=== PATIENT | female | born 1940 | race Caucasian/White ===

== ENCOUNTER 2020-02-11 11:21 | Outpatient (CLI) | payer MEDICARE, OTHER ==
--- NOTE | 2020-02-11 10:40 | MMO ---
Bilateral MAMMO Bilat Screen [facility]. CLINICAL HISTORY: Patient is 79 years old and is seen for screening. The patient has the following family history of breast cancer: sister, at age 65, bilateral, bone ca. The patient has no personal history of cancer. VIEWS: The views performed were: bilateral craniocaudal with tomosynthesis and bilateral mediolateral oblique with tomosynthesis. FILMS COMPARED: The present examination has been compared to prior imaging studies performed at [facility] on 03/15/2011, 03/16/2012, 01/24/2014 and 01/30/2015. This study has been interpreted with the assistance of computer-aided detection. MAMMOGRAM FINDINGS: The breasts are heterogeneously dense, which could obscure a lesion on mammography. There are stable benign appearing calcifications seen in both breasts. Nodularity is stable. There are no suspicious masses, suspicious calcifications, or new areas of architectural distortion. IMPRESSION: THERE IS NO MAMMOGRAPHIC EVIDENCE OF MALIGNANCY. A ROUTINE FOLLOW-UP MAMMOGRAM IN 1 YEAR IS RECOMMENDED. THE RESULTS OF THIS EXAM WERE SENT TO THE PATIENT. ACR BI-RADS Category 2 - Benign finding MAMMOGRAPHY NOTE: 1. A negative mammogram report should not delay a biopsy if a dominant of clinically suspicious mass is present. 2. Approximately 10% to 15% of breast cancers are not detected by mammography. 3. Adenosis and dense breasts may obscure an underlying neoplasm. Reported by: HEMANTH CARDOZA MD Electonically Signed: [id number]
--- NOTE | 2020-02-11 10:50 | BD ---
EXAM: DEXA bone density examination HISTORY: 79-year-old postmenopausal female for screening COMPARISON: None FINDINGS: L1--bone mineral density 0.956 g/sq cm; T score -0.3 L2--bone mineral density 0.999 g/sq cm; T score -0.3 L3--bone mineral density 1.286 g/sq cm; T score 1.8 L4--bone mineral density 1.079 g/sq cm; T score 0.2 Total L1-L4--bone mineral density 1.077 g/sq cm; T score 0.3 Left femoral neck--bone mineral density0.602; T score -2.2 Total proximal left femur--bone mineral density 0.686; T score -2.1 IMPRESSION: Osteopenia. This patient has a 10 year WHO fracture risk of a major osteoporotic fracture of 28% and of a hip fracture of 8.4%.
== END 2020-02-11 11:22 | disposition home or self-care (01) ==
LOC: BICMAMMO 11:21
PROVIDERS: ATTEND Internal Medicine
DX: Z12.31 Encounter for screening mammogram for malignant neoplasm of breast (principal); Z13.820 Encounter for screening for osteoporosis; Z78.0 Asymptomatic menopausal state; M85.852 Other specified disorders of bone density and structure, left thigh; Z80.3 Family history of malignant neoplasm of breast; Z80.8 Family history of malignant neoplasm of other organs or systems
CPT/HCPCS: 77063; 77067; 77080

== ENCOUNTER 2021-03-03 12:46 | Outpatient (CLI) | payer MEDICARE, OTHER | END 2021-03-03 12:47 | disposition home or self-care (01) | LOC: BICMAMMO 12:46 | PROVIDERS: ATTEND Internal Medicine | DX: Z12.31 Encounter for screening mammogram for malignant neoplasm of breast (principal); Z80.3 Family history of malignant neoplasm of breast | CPT/HCPCS: 77063; 77067 ==

== ENCOUNTER 2021-12-30 10:07 | Outpatient (CLI) | payer MEDICARE, OTHER | END 2021-12-30 10:08 | disposition home or self-care (01) | LOC: BICRAD 10:07 | PROVIDERS: ATTEND Internal Medicine | DX: M54.9 Dorsalgia, unspecified (principal); M54.2 Cervicalgia; M41.84 Other forms of scoliosis, thoracic region | CPT/HCPCS: 72040; 72072 ==

== ENCOUNTER 2022-02-12 12:38 | Outpatient (CLI) | payer MEDICARE, OTHER ==
[~2022-02-12 12:38] MED LIST: Iopamidol 370 76% 100 ML VIAL ONE
== END 2022-02-12 12:39 | disposition home or self-care (01) ==
LOC: BICCT 12:38
PROVIDERS: ATTEND Internal Medicine
DX: R07.9 Chest pain, unspecified (principal); K44.9 Diaphragmatic hernia without obstruction or gangrene
CPT/HCPCS: 71260; Q9967

== ENCOUNTER 2022-02-19 13:43 | Outpatient (CLI) | payer MEDICARE, OTHER | END 2022-02-19 13:44 | disposition home or self-care (01) | LOC: BICCT 13:43 | PROVIDERS: ATTEND Internal Medicine | DX: M54.9 Dorsalgia, unspecified (principal); M47.814 Spondylosis without myelopathy or radiculopathy, thoracic region | CPT/HCPCS: 72128 ==

== ENCOUNTER 2022-05-13 10:46 | Inpatient (IN) | payer MEDICARE, OTHER ==
[2022-05-13 11:56] LABS: #Basophils 0.1 thou/uL (0.0-0.2); #Eosinphils 0.1 thou/uL (0.0-0.7); #Lymphocytes 1.5 thou/uL (1.20-3.40); #Monocytes 0.3 thou/uL (0.11-0.59); #Neutrophils 4.9 thou/uL (1.40-6.50); %Basophils 0.9 % (0.0-1.0); %Eosinophils 1.4 % (0.0-10.0); %Monocytes 4.2 % (0.0-10.0); %Neutrophils 71.5 % (42.0-75.0); Hemoglobin 14.9 g/dL (12.0-16.0); Mean Corpuscular HGB CONC 32.8 g/dL (32.0-36.0); Mean Corpuscular Hemoglobin 29.6 pg (27.0-31.0); Mean Corpuscular Volume 90.2 fL (78.0-98.0); Mean Platelet Volume 7.6 fL (7.4-10.4); Platelet Count 275 thou/uL (130-400); RBC Distribution Width 11.9 % (11.5-14.5); Red Blood Cell (RBC) Count 5.03 mill/uL (4.20-5.40); White Blood Cell (WBC) Count 6.8 thou/uL (4.8-10.8)
[2022-05-13 12:17] LABS: Actual Bicarbonate (HCO3v) 17 mEq/L (22-28); Calcium, Ionized (venous) 1.17 mmol/L (1.16-1.32); Chloride (VBG) 97 mmol/L (98-106); Hemoglobin (Hb) 15.4 g/dL (11.7-16.1); Potassium (VBG) 5.21 mmol/L (3.70-5.30)
[2022-05-13 12:24] LABS: ALT (SGPT) 13 U/L (8-55); AST (SGOT) 15 U/L (5-34); Albumin 4.3 g/dL (3.4-4.8); Alkaline Phosphatase 136 U/L (40-110); Anion Gap 24 mmol/L (10-20); BUN (Urea Nitrogen) 24 mg/dL (9.8-20.1); Bilirubin, Total 1.3 mg/dL (0.2-1.2); Calc. Creatinine Clearance 0 mL/min (70-130); Calcium 9.5 mg/dL (7.8-10.44); Carbon Dioxide 14 mmol/L (23-31); Estimated GFR 42; Globulin 3.5 g/dL (2.4-3.5); Glucose 474 mg/dL (83-110); Potassium 4.9 mmol/L (3.5-5.1); Protein, Total 7.8 g/dL (5.8-8.1)
[2022-05-13 12:29] LABS: Chloride 98 mmol/L (98-107); Sodium 131 mmol/L (136-145)
[2022-05-13] MEDS ORDERED: Insulin Regular 300 UNITS/3 ML VIAL ONE (13:41)
[2022-05-13] MEDS ORDERED: Ketorolac Tromethamine 30 MG/ML VIAL ONE (14:24)
[2022-05-13] MEDS ORDERED: Ondansetron PF 4 MG/2 ML Vial IVP PRN (14:26)
[2022-05-13] MEDS ORDERED: Acetaminophen 325 MG TAB PO PRN (14:26)
[2022-05-13] MEDS ORDERED: Ondansetron ODT 4 MG TAB PO PRN (14:26)
[2022-05-13] MEDS ORDERED: Dextrose 50% Abboject 50 ML SYRINGE SLOW IVP PRN (14:29)
[2022-05-13] MEDS ORDERED: Dextrose 5% in Water 1,000 ML IV PRN (14:29)
[2022-05-13] MEDS ORDERED: Insulin Regular 300 UNITS/3 ML VIAL SC PRN ×3 (14:29→15:59)
[2022-05-13] MEDS ORDERED: Sodium Chloride 0.9% 1,000 ML IV SCH ×3 (14:30→19:00)
[2022-05-13] MEDS ORDERED: Electrolyte Replacement Protocol 1 EACH FS SCH (14:30)
[2022-05-13 15:03] LABS: Bilirubin Negative (Negative); Blood, Urine Negative (Negative); Clarity Clear (Clear); Glucose, Urine (Dipstick) Greater than 1000 mg/dL (Negative); Ketone, Urine Greater than 150 mg/dL (Negative); Leukocyte Negative Leu/uL (Negative); Nitrite Negative (Negative); Protein, Urine (Dipstick) Negative (Neg-Trace); Specific Gravity, Urine 1.019 (1.002-1.036); Urobilinogen Normal mg/dL (Less than 2); pH, Urine 5.5 (5.0-9.0)
[2022-05-13 15:10] LABS: INR-International Normal Ratio 1.2; Prothrombin Time 15.7 sec (12.0-14.7)
[2022-05-13 15:16] LABS: Magnesium 1.9 mg/dL (1.6-2.6); Phosphorus 3.6 mg/dL (2.3-4.7)
[2022-05-13] MEDS ORDERED: Insulin Glargine 30 UNITS/0.3 ML VIAL SC SCH ×3 (15:45→21:00)
[2022-05-13 16:10] VITALS: BP 156/71
[2022-05-13 16:14] VITALS: BMI 27.2
[2022-05-13 18:41] LABS: Anion Gap 23 mmol/L (10-20); BUN (Urea Nitrogen) 22 mg/dL (9.8-20.1); Calc. Creatinine Clearance 41 mL/min (70-130); Calcium 8.8 mg/dL (7.8-10.44); Carbon Dioxide 10 mmol/L (23-31); Chloride 103 mmol/L (98-107); Estimated GFR 45; Glucose 453 mg/dL (83-110); Potassium 5.1 mmol/L (3.5-5.1); Sodium 131 mmol/L (136-145)
[2022-05-13] MEDS ORDERED: Dextrose 5 %-0.45 % NaCl 1,000 ML IV PRN (18:51)
[2022-05-13] MEDS ORDERED: Sodium Chloride 0.9% 1,000 ML IV PRN ×4 (18:51)
[2022-05-13] MEDS ORDERED: NS 0.9% w/ 20 MEQ KCL 1,000 ML IV PRN ×2 (18:51)
[2022-05-13] MEDS ORDERED: D5 1/2 NS w/20 mEq KCL 1,000 ML IV PRN (18:51)
[2022-05-13] MEDS ORDERED: HUMULIN R 100 UNITS in Sodium Chloride 0.9% 100 ML IVPB SCH (19:00)
[2022-05-13] MEDS: Heparin 5,000 UNITS/ML VIAL SC SCH (20:32)
[2022-05-13] MEDS ORDERED: Famotidine 20 MG TAB PO SCH (21:00)
[2022-05-13] MEDS ORDERED: Magnesium 2 GM/50 ML(in water) 2 GM in Premix Bag 1 BAG IVPB SCH (23:59)
[2022-05-14 00:39] LABS: Anion Gap 10 mmol/L (10-20); BUN (Urea Nitrogen) 18 mg/dL (9.8-20.1); Calc. Creatinine Clearance 58 mL/min (70-130); Calcium 7.9 mg/dL (7.8-10.44); Carbon Dioxide 19 mmol/L (23-31); Chloride 110 mmol/L (98-107); Estimated GFR 69; Glucose 222 mg/dL (83-110); Potassium 3.6 mmol/L (3.5-5.1); Sodium 135 mmol/L (136-145)
[2022-05-14] MEDS ORDERED: HumaLOG 300 UNITS/3 ML VIAL SC PRN (01:19)
[2022-05-14 03:33] LABS: #Eosinphils 0.1 thou/uL (0.0-0.7); #Lymphocytes 1.8 thou/uL (1.20-3.40); #Monocytes 0.7 thou/uL (0.11-0.59); #Neutrophils 4.2 thou/uL (1.40-6.50); %Basophils 0.6 % (0.0-1.0); %Eosinophils 1.5 % (0.0-10.0); %Lymphocytes 26.5 % (21.0-51.0); %Monocytes 10.3 % (0.0-10.0); %Neutrophils 61.1 % (42.0-75.0); Hemoglobin 12.5 g/dL (12.0-16.0); Mean Corpuscular HGB CONC 33.2 g/dL (32.0-36.0); Mean Corpuscular Hemoglobin 29.8 pg (27.0-31.0); Mean Corpuscular Volume 89.8 fL (78.0-98.0); Mean Platelet Volume 7.4 fL (7.4-10.4); Platelet Count 219 thou/uL (130-400); RBC Distribution Width 12.1 % (11.5-14.5); Red Blood Cell (RBC) Count 4.21 mill/uL (4.20-5.40); White Blood Cell (WBC) Count 6.9 thou/uL (4.8-10.8)
[2022-05-14 03:55] LABS: Anion Gap 12 mmol/L (10-20); BUN (Urea Nitrogen) 17 mg/dL (9.8-20.1); Calc. Creatinine Clearance 61 mL/min (70-130); Calcium 8.6 mg/dL (7.8-10.44); Carbon Dioxide 17 mmol/L (23-31); Chloride 113 mmol/L (98-107); Estimated GFR 73; Glucose 162 mg/dL (83-110); Potassium 4.1 mmol/L (3.5-5.1); Sodium 138 mmol/L (136-145)
[2022-05-14 04:04] LABS: Magnesium 2.5 mg/dL (1.6-2.6); Phosphorus 2.1 mg/dL (2.3-4.7)
[2022-05-14 07:33] LABS: Anion Gap 12 mmol/L (10-20); BUN (Urea Nitrogen) 14 mg/dL (9.8-20.1); Calc. Creatinine Clearance 64 mL/min (70-130); Calcium 8.3 mg/dL (7.8-10.44); Carbon Dioxide 16 mmol/L (23-31); Chloride 112 mmol/L (98-107); Estimated GFR 74; Glucose 196 mg/dL (83-110); Potassium 3.9 mmol/L (3.5-5.1); Sodium 136 mmol/L (136-145)
[2022-05-14] MEDS ORDERED: Insulin Glargine 30 UNITS/0.3 ML VIAL SC SCH ×2 (09:00)
[2022-05-14] MEDS: Heparin 5,000 UNITS/ML VIAL SC SCH (09:13)
[2022-05-14] MEDS: Famotidine 20 MG TAB PO SCH ×2 (09:14→20:15)
[2022-05-14] MEDS ORDERED: Diltiazem 125 MG in Sodium Chloride 0.9% 100 ML IVPB SCH (10:00)
[2022-05-14] MEDS: HumaLOG 300 UNITS/3 ML VIAL SC PRN ×2 (13:15→18:25)
[2022-05-14] MEDS: K-Phos Neutral 250 MG TAB PO SCH (18:25)
[2022-05-14] MEDS: Flecainide 50 MG TAB PO SCH (20:15)
[2022-05-14] MEDS ORDERED: Famotidine 20 MG TAB PO SCH (21:00)
[2022-05-14] MEDS ORDERED: FLUoxetine HCl 20 MG CAP PO SCH (21:00)
[2022-05-14] MEDS ORDERED: Donepezil HCl 10 MG TAB PO SCH (21:00)
[2022-05-15 04:40] LABS: Anion Gap 12 mmol/L (10-20); BUN (Urea Nitrogen) 11 mg/dL (9.8-20.1); Calc. Creatinine Clearance 63 mL/min (70-130); Calcium 9.2 mg/dL (7.8-10.44); Carbon Dioxide 20 mmol/L (23-31); Chloride 110 mmol/L (98-107); Estimated GFR 72; Glucose 105 mg/dL (83-110); Magnesium 1.8 mg/dL (1.6-2.6); Phosphorus 2.3 mg/dL (2.3-4.7); Potassium 3.7 mmol/L (3.5-5.1); Sodium 138 mmol/L (136-145)
[2022-05-15 05:32] LABS: Band 2 % (5-11); Eosinophils 1 % (0-10); Hemoglobin 13.7 g/dL (12.0-16.0); Lymphocytes 38 % (21-51); MDiff Complete? YES; Mean Corpuscular HGB CONC 33.5 g/dL (32.0-36.0); Mean Corpuscular Hemoglobin 30.6 pg (27.0-31.0); Mean Corpuscular Volume 91.5 fL (78.0-98.0); Mean Platelet Volume 9.1 fL (7.4-10.4); Monocytes 7 % (0-10); Neutrophil 52 % (42-75); Platelet Count 222 thou/uL (130-400); RBC Distribution Width 12.8 % (11.5-14.5); Red Blood Cell (RBC) Count 4.46 mill/uL (4.20-5.40); White Blood Cell (WBC) Count 6.3 thou/uL (4.8-10.8)
[2022-05-15] MEDS ORDERED: Levothyroxine Sodium 50 MCG TAB PO SCH (06:00)
[2022-05-15] MEDS ORDERED: glipiZIDE 10 MG TAB PO SCH (07:30)
[2022-05-15] MEDS: Flecainide 50 MG TAB PO SCH (07:55)
[2022-05-15] MEDS: K-Phos Neutral 250 MG TAB PO SCH (07:55)
[2022-05-15] MEDS: Famotidine 20 MG TAB PO SCH (07:55)
[2022-05-15] MEDS ORDERED: Magnesium 2 GM/50 ML(in water) 2 GM in Premix Bag 1 BAG IVPB SCH (08:00)
[2022-05-15] MEDS ORDERED: Insulin Glargine 30 UNITS/0.3 ML VIAL SC SCH (09:00)
[2022-05-15] MEDS ORDERED: Oxybutynin ER 5 MG TAB PO SCH (09:00)
[2022-05-15 09:26] VITALS: TEMP 97.7
[2022-05-15] MEDS ORDERED: Rivaroxaban 10 MG TAB PO SCH (18:00)
== END 2022-05-15 12:15 | disposition home or self-care (01) | DRG 638 ==
LOC: ERS 10:46 → T4-A 14:28 → IMCU/EMU 19:44
PROVIDERS: ADMIT Internal Medicine; ATTEND Internal Medicine
DX: E11.10 Type 2 diabetes mellitus with ketoacidosis without coma (principal); E87.1 Hypo-osmolality and hyponatremia; N17.9 Acute kidney failure, unspecified; Z20.822 Contact with and (suspected) exposure to COVID-19; N18.30 Chronic kidney disease, stage 3 unspecified; E78.5 Hyperlipidemia, unspecified; E11.22 Type 2 diabetes mellitus with diabetic chronic kidney disease; E86.0 Dehydration; I12.9 Hypertensive chronic kidney disease with stage 1 through stage 4 chronic kidney disease, or unspecified chronic kidney disease; I48.91 Unspecified atrial fibrillation; E83.39 Other disorders of phosphorus metabolism; Z88.0 Allergy status to penicillin; Z79.4 Long term (current) use of insulin; Z79.899 Other long term (current) drug therapy; Z79.02 Long term (current) use of antithrombotics/antiplatelets; Z98.51 Tubal ligation status; Z98.890 Other specified postprocedural states
CPT/HCPCS: 36415; 36416; 80048; 80053; 81003; 82010; 82805; 83735; 84100; 84443; 84484; 85025; 85610; 93005; 93010; J1644; J1815; J1885; J2405; J3475; J3490; J7050; Q0162; U0003; U0005

== ENCOUNTER 2022-09-07 16:25 | Emergency (ER) | payer MEDICARE, OTHER ==
[2022-09-07 17:35] LABS: #Eosinphils 0.2 thou/uL (0.0-0.7); #Lymphocytes 2.3 thou/uL (1.20-3.40); #Monocytes 0.4 thou/uL (0.11-0.59); #Neutrophils 4.2 thou/uL (1.40-6.50); %Basophils 0.4 % (0.0-1.0); %Eosinophils 3.3 % (0.0-10.0); %Lymphocytes 31.5 % (21.0-51.0); %Monocytes 5.8 % (0.0-10.0); %Neutrophils 59.1 % (42.0-75.0); Hemoglobin 14.6 g/dL (12.0-16.0); Mean Corpuscular HGB CONC 33.3 g/dL (32.0-36.0); Mean Corpuscular Hemoglobin 29.2 pg (27.0-31.0); Mean Corpuscular Volume 87.7 fl (78.0-98.0); Mean Platelet Volume 7.6 fL (7.4-10.4); Platelet Count 301 10x3/uL (130-400); Red Blood Cell (RBC) Count 4.99 mill/uL (4.20-5.40); White Blood Cell (WBC) Count 7.2 10x3/uL (4.8-10.8)
[2022-09-07 17:55] LABS: ALT (SGPT) 10 U/L (8-55); AST (SGOT) 16 U/L (5-34); Albumin 4.4 g/dL (3.4-4.8); Alkaline Phosphatase 121 U/L (40-110); Anion Gap 15 mmol/L (10-20); BUN (Urea Nitrogen) 18 mg/dL (9.8-20.1); Bilirubin, Total 0.6 mg/dL (0.2-1.2); Calc. Creatinine Clearance 0 mL/min (70-130); Calcium 9.9 mg/dL (7.8-10.44); Carbon Dioxide 24 mmol/L (23-31); Chloride 104 mmol/L (98-107); Estimated GFR 56; Globulin 3.3 g/dL (2.4-3.5); Glucose 134 mg/dL (83-110); Protein, Total 7.7 g/dL (5.8-8.1); Sodium 139 mmol/L (136-145)
[2022-09-07] MEDS ORDERED: Meclizine HCl 25 MG TAB ONE (21:44)
[2022-09-07 23:35] LABS: Bacteria/HPF None Seen HPF (None Seen); Bilirubin Negative (Negative); Blood, Urine Negative (Negative); Clarity Clear (Clear); Glucose, Urine (Dipstick) Normal (Negative); Ketone, Urine Negative (Negative); Leukocyte 250 Leu/uL (Negative); Nitrite Negative (Negative); Protein, Urine (Dipstick) Negative (Neg-Trace); RBC/HPF 0-3 HPF (0-3); Specific Gravity, Urine 1.016 (1.002-1.036); Squamous Epithelial None Seen HPF (0-3); Urobilinogen Normal mg/dL (Less than 2)
== END 2022-09-07 23:58 | disposition home or self-care (01) ==
LOC: ERS 16:25
DX: N39.0 Urinary tract infection, site not specified (principal); R42 Dizziness and giddiness; I10 Essential (primary) hypertension; E78.5 Hyperlipidemia, unspecified; E11.9 Type 2 diabetes mellitus without complications
CPT/HCPCS: 36415; 70450; 80053; 81003; 81015; 84484; 85025; 87086; 93005; 94760

== ENCOUNTER 2023-06-30 12:24 | Outpatient (CLI) | payer MEDICARE, OTHER | END 2023-06-30 12:25 | disposition home or self-care (01) | LOC: BICCT 12:24 | PROVIDERS: ATTEND Psychiatry & Neurology Neurology | DX: R41.3 Other amnesia (principal); I67.82 Cerebral ischemia; J32.9 Chronic sinusitis, unspecified; R90.89 Other abnormal findings on diagnostic imaging of central nervous system | CPT/HCPCS: 70450 ==